=== PATIENT | female | born 1955 | race Caucasian/White ===

== ENCOUNTER 2017-12-28 08:18 | Inpatient (IN) | payer SELFPAY ==
[~2017-12-28] VITALS: Ht 165.1 cm; Wt 50.0 kg
[~2017-12-28 08:18] MED LIST: FOLIC ACID1 MG PO; HYDROCODONE-APA1 TAB PO; OMNICEF300 MG PO; ONDANSETRON4 MG/2 M3 IV; PHENERGAN25 M1 PO; PROTONIX I40 MG/VIAL IV; PROTONIX40 MG PO; VITAMIN B-150 MG PO; XANAX1 MG PO; ZANTAC150 MG PO; ZOFRAN4 MG PO
[2017-12-28 08:59] LABS: UDS - AMPHET NEGATIVE QUAL (NEGATIVE); UDS - BARB NEGATIVE QUAL (NEGATIVE); UDS - BENZO POSITIVE QUAL (NEGATIVE); UDS - COCAINE NEGATIVE QUAL (NEGATIVE); UDS - OPIATE NEGATIVE QUAL (NEGATIVE); UDS - PCP NEGATIVE QUAL (NEGATIVE); UDS - THC POSITIVE QUAL (NEGATIVE)
[2017-12-28 09:09] LABS: BASOPHILS 0.5 % (0-2); EOSINOPHILS 0.5 % (0-7); HEMATOCRIT 40.4 % (36.0-48.0); LYMPHOCYTES 44.6 % (15-50); MCH 33.1 pg (26.0-34.0); MCHC 34.7 g/dL (31.0-37.0); MCV 95.5 fL (80.0-100.0); MEAN PLATELET VOLUME 9.3 fL (7.4-10.4); MONOCYTES 11.7 % (2-11); NEUTROPHILS 42.7 % (40-80); RBC 4.23 10x6/uL (4.00-5.40); RDW 16.3 % (11.5-14.5); WBC 4.3 10x3/uL (4.8-10.8)
[2017-12-28 09:14] LABS: PLATELET COUNT 191 10x3/uL (130-400)
[2017-12-28 09:17] LABS: APPEARANCE CLEAR (CLEAR); BILIRUBIN NEGATIVE (NEGATIVE); COLOR YELLOW (YELLOW); GLUCOSE NEGATIVE (NEGATIVE); KETONE NEGATIVE (NEGATIVE); NITRITE NEGATIVE (NEGATIVE); PROTEIN 1+ mg/dL (NEGATIVE)
[2017-12-28 09:18] LABS: BACTERIA MODERATE /hpf (NONE SEEN); EPITHELIAL CELLS 0-5 /hpf (0-5); MUCUS <1+ /lpf (NONE SEEN); RED CELLS - URINE 0-5 /hpf (0-5); WHITE CELLS - URINE RARE /hpf (0-5); YEAST <1+ /hpf (NONE SEEN)
[2017-12-28 09:33] LABS: ALBUMIN 3.5 g/dL (3.4-5.0); ALKALINE PHOSPHATASE 160 U/L (46-116); ALT (SGPT) 31 U/L (10-68); BILIRUBIN - TOTAL 0.35 mg/dL (0.2-1.3); CALC OSMOLALITY 275 mosm/kg (275-300); CALCIUM 9.6 mg/dL (8.5-10.1); CARBON DIOXIDE 24.4 mmol/L (21.0-32.0); CHLORIDE - SERUM 98 mmol/L (98-107); CREATININE - SERUM 0.5 mg/dL (0.6-1.3); GLUCOSE 140 mg/dL (74-106); POTASSIUM - SERUM 3.2 mmol/L (3.5-5.1); SODIUM 138 mmol/L (136-145); UREA NITROGEN 8 mg/dL (7-18); eGFR NON AFRICAN AMERICAN > 90 mL/min (90-120)
[2017-12-28 09:46] LABS: AMYLASE - SERUM 156 U/L (25-115); CREATINE KINASE 78 UL (21-215); LIPASE 536 U/L (73-393)
[2017-12-28 09:51] LABS: TROPONIN-I < 0.017 ng/mL (0.000-0.060)
[2017-12-28 13:50] LABS: CKMB 0.2 U/L (0.0-3.6); CREATINE KINASE 83 UL (21-215); TROPONIN-I < 0.017 ng/mL (0.000-0.060)
[2017-12-28] MEDS ORDERED: ULTRAM50 MG PO (16:48)
[2017-12-28] MEDS ORDERED: VITAMIN D31000 UNI2 PO (16:51)
[2017-12-28 17:31] VITALS: BMI 19.1
[2017-12-28 18:59] LABS: CKMB 0.4 U/L (0.0-3.6); CREATINE KINASE 71 UL (21-215); TROPONIN-I < 0.017 ng/mL (0.000-0.060)
[2017-12-28 21:08] VITALS: BP 126/86
[2017-12-29] VITALS: BP 140/91
[2017-12-29 00:59] LABS: CKMB 0.3 U/L (0.0-3.6); CREATINE KINASE 62 UL (21-215); TROPONIN-I < 0.017 ng/mL (0.000-0.060)
[2017-12-29 04:00] VITALS: BP 141/88
[2017-12-29 05:40] LABS: BASOPHILS 0.2 % (0-2); EOSINOPHILS 1.5 % (0-7); HEMOGLOBIN 13.3 g/dL (12-16); LYMPHOCYTES 48.9 % (15-50); MCH 32.8 pg (26.0-34.0); MCHC 34.1 g/dL (31.0-37.0); MCV 96.1 fL (80.0-100.0); MEAN PLATELET VOLUME 9.8 fL (7.4-10.4); MONOCYTES 7.5 % (2-11); NEUTROPHILS 41.9 % (40-80); PLATELET COUNT 186 10x3/uL (130-400); RBC 4.06 10x6/uL (4.00-5.40); RDW 16.5 % (11.5-14.5); WBC 4.7 10x3/uL (4.8-10.8)
[2017-12-29 06:17] LABS: ALBUMIN 3.2 g/dL (3.4-5.0); ALKALINE PHOSPHATASE 231 U/L (46-116); ALT (SGPT) 73 U/L (10-68); AMYLASE - SERUM 115 U/L (25-115); BILIRUBIN - TOTAL 1.71 mg/dL (0.2-1.3); CALC OSMOLALITY 272 mosm/kg (275-300); CALCIUM 9.1 mg/dL (8.5-10.1); CARBON DIOXIDE 28.3 mmol/L (21.0-32.0); CHLORIDE - SERUM 97 mmol/L (98-107); CREATININE - SERUM 0.7 mg/dL (0.6-1.3); GLUCOSE 89 mg/dL (74-106); LIPASE 264 U/L (73-393); PROTEIN - SERUM 6.7 g/dL (6.4-8.2); SODIUM 138 mmol/L (136-145); UREA NITROGEN 8 mg/dL (7-18); eGFR NON AFRICAN AMERICAN 90 mL/min (90-120)
[2017-12-29 08:27] VITALS: BP 138/84
[2017-12-29 12:42] VITALS: Ht 165.1 cm; Wt 50.0 kg
[2017-12-29 13:12] VITALS: BP 116/80
[2017-12-29 16:51] VITALS: BP 138/99
[2017-12-29 20:33] VITALS: BP 129/87
[2017-12-30 01:00] VITALS: BP 124/87
[2017-12-30 04:00] VITALS: BP 115/91
[2017-12-30 08:39] VITALS: BP 110/86
[2017-12-30 12:17] VITALS: BP 128/87
[2017-12-30 13:53] LABS: HEMATOCRIT 36.3 % (36.0-48.0); HEMOGLOBIN 12.2 g/dL (12-16); MCH 32.7 pg (26.0-34.0); MCHC 33.6 g/dL (31.0-37.0); MCV 97.3 fL (80.0-100.0); MEAN PLATELET VOLUME 10.3 fL (7.4-10.4); PLATELET COUNT 139 10x3/uL (130-400); RBC 3.73 10x6/uL (4.00-5.40); RDW 16.3 % (11.5-14.5); WBC 3.8 10x3/uL (4.8-10.8)
[2017-12-30 14:12] LABS: ALBUMIN 2.7 g/dL (3.4-5.0); ALKALINE PHOSPHATASE 267 U/L (46-116); BILIRUBIN - TOTAL 0.88 mg/dL (0.2-1.3); CALCIUM 8.7 mg/dL (8.5-10.1); CARBON DIOXIDE 31.3 mmol/L (21.0-32.0); CHLORIDE - SERUM 98 mmol/L (98-107); CREATININE - SERUM 0.8 mg/dL (0.6-1.3); LIPASE 165 U/L (73-393); PROTEIN - SERUM 5.9 g/dL (6.4-8.2); SODIUM 138 mmol/L (136-145); UREA NITROGEN 6 mg/dL (7-18); eGFR NON AFRICAN AMERICAN 77 mL/min (90-120)
[2017-12-30 14:14] LABS: ALT (SGPT) 114 U/L (10-68); AMYLASE - SERUM 72 U/L (25-115); CALC OSMOLALITY 279 mosm/kg (275-300); EOSINOPHILS 3 % (0-7); GLUCOSE 199 mg/dL (74-106); LYMPHOCYTES 59 % (15-50); MONOCYTES 4 % (2-11); NEUTROPHILS 34 % (40-80); PLATELET ESTIMATE NORMAL
[2017-12-30 14:16] LABS: POTASSIUM - SERUM 2.6 mmol/L (3.5-5.1)
[2017-12-30 16:32] VITALS: BP 118/88
== END 2017-12-30 21:00 | disposition home or self-care (01) | DRG 439 ==
LOC: D.ER 08:18 → D.M2 12:24 → D.EDHOLD 12:24 → D.M2 16:33
PROVIDERS: Family Medicine
DX: K85.20 Alcohol induced acute pancreatitis without necrosis or infection (principal); F17.203 Nicotine dependence unspecified, with withdrawal; E44.0 Moderate protein-calorie malnutrition; Z68.1 Body mass index [BMI] 19.9 or less, adult; F10.20 Alcohol dependence, uncomplicated; E87.6 Hypokalemia; G89.29 Other chronic pain; M54.9 Dorsalgia, unspecified; F41.9 Anxiety disorder, unspecified

== ENCOUNTER → 2020-01-18 22:00 | Outpatient (CLI) | payer SELFPAY ==
[2017-12-29 12:42] VITALS: BMI 18.3
[~2020-01-18 22:00] MED LIST changes: +ULTRAM50 MG PO; +VITAMIN D31000 UNI2 PO
[2020-01-19 01:54] LABS: BASOPHILS 0.7 % (0-2); EOSINOPHILS 2.2 % (0-7); HEMATOCRIT 35.7 % (36.0-48.0); HEMOGLOBIN 11.1 g/dL (12-16); IMMATURE GRANULOCYTES 0.3 % (0-5); LYMPHOCYTES 32.6 % (15-50); MCH 30.4 pg (26.0-34.0); MCHC 31.1 g/dL (31.0-37.0); MCV 97.8 fL (80.0-100.0); MEAN PLATELET VOLUME 8.6 fL (7.4-10.4); MONOCYTES 6.7 % (2-11); NEUTROPHILS 57.5 % (40-80); RBC 3.65 10x6/uL (4.00-5.40); RDW 13.9 % (11.5-14.5); WBC 10.9 10x3/uL (4.8-10.8)
[2020-01-19 02:02] LABS: PLATELET COUNT 668 10x3/uL (130-400)
[2020-01-19 02:18] LABS: ALBUMIN 2.8 g/dL (3.4-5.0); ANION GAP 15.6 mmol/L (8-16); BILIRUBIN - TOTAL 0.21 mg/dL (0.2-1.3); CARBON DIOXIDE 25.6 mmol/L (21.0-32.0); CREATININE - SERUM 1.7 mg/dL (0.6-1.3); POTASSIUM - SERUM 5.2 mmol/L (3.5-5.1); PROTEIN - SERUM 7.4 g/dL (6.4-8.2)
== END | disposition home or self-care (01) ==
LOC: D.LABREF 22:00
DX: N39.0 Urinary tract infection, site not specified (principal)